=== PATIENT | female | born 1995 | race Caucasian/White ===

== ENCOUNTER 2017-01-24 19:19 | Emergency (ER) | payer OTHER ==
[2017-01-24 19:36] VITALS: BP 125/82
--- NOTE | 2017-01-24 19:59 | UC ---
Dizzy HPI HPI Summary: 21 yo female ate only a bagel today When shopping felt weak and dizzy had a slow fall to the floor no complete LOC got up within seconds drank a gatorade and now feels better no HOLCOMB no CP no palpitation mild runny nose no vertigo no ear ache no gi or vaginal bleeding - History Of Current Complaint Chief Complaint: UCDizziness Stated Complaint: LOST CONSCIOUSNESS Time Seen by Provider: 01/24/17 19:32 Hx Last Menstrual Period: 01/17/17 Onset/Duration: Gradual Onset Timing: Seconds Severity Initially: Moderate Severity Currently: None Pain Intensity: 0 Pain Scale Used: 0-10 Numeric Character: Lightheaded, Dizzy Aggravating Factor(s): Nothing Associated Signs And Symptoms: Negative: Nausea, Vomiting, Diaphoresis, Tinnitus , Chest Pain, SOB, Palpitations, Unsteady Gait, Visual Changes, Decreased Oral Intake, Change In Medication, Change In Diet, OTC Medications - Allergies/Home Medications Allergies/Adverse Reactions: Allergies Allergy/AdvReac Type Severity Reaction Status Date / Time No Known Allergies Allergy Verified 01/24/17 19:35 Home Medications: Home Medications Control 1 tab PO DAILY 01/24/17 [History Confirmed 01/24/17] PMH/Surg Hx/FS Hx/Imm Hx Previously Healthy: Yes - Surgical History Surgical History: Yes Surgery Procedure, Year, and Place: right ankle - Family History Known Family History: Positive: Hypertension - Social History Alcohol Use: Weekly Substance Use Type: None Smoking Status (MU): Never Smoked Tobacco Review of Systems Constitutional: Negative Skin: Negative Eyes: Negative ENT: Negative Respiratory: Negative Cardiovascular: Negative Gastrointestinal: Negative Genitourinary: Negative Motor: Negative Neurovascular: Negative Musculoskeletal: Negative Neurological: Negative Psychological: Negative All Other Systems Reviewed And Are Negative: Yes Physical Exam Triage Information Reviewed: Yes Appearance: Well-Appearing, No Pain Distress, Well-Nourished Vital Signs: Initial Vital Signs Temp 97.3 F 01/24/17 19:28 Pulse 100 01/24/17 19:28 Resp 14 01/24/17 19:28 BP 125/82 01/24/17 19:28 Pulse Ox 100 01/24/17 19:28 Vital Signs Reviewed: Yes Eyes: Positive: Conjunctiva Clear ENT: Positive: Hearing grossly normal, Pharynx normal, TMs normal. Negative: Nasal congestion, Nasal drainage, Tonsillar exudate, Trismus, Muffled/hoarse voice Neck exam: Normal Neck: Positive: Supple, Nontender, No Lymphadenopathy Respiratory: Positive: Chest non-tender, Lungs clear, Normal breath sounds, No respiratory distress, No accessory muscle use Cardiovascular: Positive: RRR, No Murmur, Brisk Capillary Refill Musculoskeletal: Positive: ROM Intact, No Edema Neurological: Positive: Alert, Muscle Tone Normal Psychological Exam: Normal Skin Exam: Normal Dizzy Course/Dx - Differential Dx/Diagnosis Provider Diagnoses: dizziness. near syncope Discharge - Discharge Plan Condition: Stable Disposition: HOME Patient Education Materials: Syncope (ED) Additional Instructions: don't skip any meals liquids recheck for new or worsening symptoms recheck in 2 days if not completely better
[2017-01-25 12:27] LABS: Hematocrit 41 % (35-47); Hemoglobin 13.6 g/dl (12.0-16.0); Mean Corpuscular HGB Conc 33 g/dl (31-36); Mean Corpuscular Hemoglobin 31 pg (27-31); Mean Corpuscular Volume 93 fL (80-97); Mean Platelet Volume 10 um3 (7.4-10.4); Red Blood Count 4.38 10^6/ul (4.0-5.4); Red Cell Distribution Width 14 % (10.5-15); White Blood Count 8.8 10^3/ul (3.5-10.8)
[2017-01-25 12:42] LABS: BUN/Creatinine Ratio 17.9 (8-20); Calcium 9.5 mg/dL (8.6-10.3); EGFR African American 119.9 (>60); EGFR Non-African American 93.2 (>60)
== END 2017-01-24 20:13 | disposition home or self-care (01) ==
LOC: UCCORT 19:19
DX: R42 Dizziness and giddiness (principal); R55 Syncope and collapse
CPT/HCPCS: 36415; 80048; 85025; 99201; G0463